=== PATIENT | female | born 2000 | race Caucasian/White ===

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

== ENCOUNTER 2019-03-04 16:15 | Emergency (ER) | payer MEDICAID ==
[2019-03-04 17:05] LABS: % BASOPHILS 0.5 % (0.0-2.0); % EOSINOPHILS 2.9 % (0.0-5.0); % LYMPHOCYTES 39.4 % (20.0-50.0); % MONOCYTES 4.3 % (2.0-10.0); % NEUTROPHILS 52.9 % (40.0-80.0); EOSINOPHILE ABSOLUTE 0.2 Th/cmm (0.1-0.4); HEMOGLOBIN 14.1 gm/dL (12-16); LYMPHOCYTE ABSOLUTE 3.3 Th/cmm (1.5-3.0); MEAN CELL VOLUME 85.2 fl (81-100); MEAN CORPUSCULAR HEMOGLOBIN 28.5 pg (27.0-31.0); MEAN CORPUSCULAR HGB CONC 33.5 pg (28.0-36.0); MONOCYTE ABSOLUTE 0.4 Th/cmm (0.3-1.0); NEUTROPHILE ABSOLUTE 4.5 Th/cmm (1.8-8.0); PLATELET COUNT 345 Th/cmm (150-400); RED BLOOD COUNT 4.92 Mil/cmm (3.80-5.10); RED CELL DISTRIBUTION WIDTH 13.3 % (11.5-20.0); WHITE BLOOD COUNT 8.4 Th/cmm (4.8-10.8)
[2019-03-04 17:16] LABS: AMYLASE SERUM 36 U/L (29-103); ANION GAP 15.6 (7.0-16.0); BUN - UREA NITROGEN 14 mg/dL (7-25); CALCIUM SERUM 10.1 mg/dL (8.6-10.3); CARBON DIOXIDE 21.8 mEq/L (21.0-31.0); CHLORIDE 105 mEq/L (98-107); CREATININE - SERUM 0.7 mg/dL (0.6-1.2); GFR AFRICAN-AMERICAN > 60.0 ml/min (>90); GFR NON AFRICAN-AMERICAN > 60.0 ml/min; GLUCOSE 98 mg/dL (70-105); LIPASE 14 U/L (11-82); POTASSIUM SERUM 3.4 mEq/L (3.5-5.1); SODIUM SERUM 139 mEq/L (136-145)
[2019-03-04] MEDS: Sodium Chloride 0.9% 800 ML IV ONE (17:21)
[2019-03-04] MEDS ORDERED: Potassium Chloride 20 mEq ER Tab PO ONE (17:30)
--- NOTE | 2019-03-04 17:43 | ED Physician Chart ---
ED Chief Complaint/HPI - Patient Information Date Seen:: 03/04/19 Time Seen:: 16:40 Chief Complaint:: Abdominal Pain History of Present Illness:: onset x 24 hours of intermittent, crampy, diffuse abdominal pain, N/V/D x 6; pt denies trauma, H/As, S/T, neck pain, cough, C/P, SOB, A/c, VB, VD, bleeding, fev er, chills, or urinary s/s Allergies:: Allergies Allergy/AdvReac Type Severity Reaction Status Date / Time No Known Allergies Allergy Verified 12/23/18 12:34 Vitals:: Vital Signs - 8 hr 03/04/19 16:46 Temp 98.1 F HR 101 RR 16 BP 125/79 O2 Sat % 97 Historian:: Patient Review:: Nurse's Note Reviewed, Old Chart Reviewed <Edil Soto - Last Filed: 03/04/19 18:54> - Patient Information Allergies:: Allergies Allergy/AdvReac Type Severity Reaction Status Date / Time No Known Allergies Allergy Verified 12/23/18 12:34 Vitals:: Vital Signs - 8 hr 03/04/19 16:46 Temp 98.1 F HR 101 RR 16 BP 125/79 O2 Sat % 97 <Nery Serrano - Last Filed: 03/04/19 20:27> ED Review of Systems - Review of Systems General/Constitutional: No fever, No chills, No weight loss, No weakness, No diaphoresis, No edema, No loss of appetite Skin: No skin lesions, No rash, No bruising Head: No headache, No light-headedness Eyes: No loss of vision, No pain, No diplopia ENT: No earache, No nasal drainage, No sore throat, No tinnitus Neck: No neck pain, No swelling, No thyromegaly, No stiffness, No mass noted Cardio Vascular: No chest pain, No palpitations, No PND, No orthopnea, No edema Pulmonary: No SOB, No cough, No sputum, No wheezing GI: No nausea, No vomiting, No diarrhea, No pain, No melena, No hematochezia, No constipation, No hematemesis G/U: No dysuria, No frequency, No hematuria, No nacturia 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 discharge, No abnormal vaginal bleed, No contraction Musculoskeletal: No bone or joint pain, No back pain, No muscle pain Endocrine: No polyuria, No polydipsia Psychiatric: No prior psych history, No depression, No anxiety, No suicidal ideation, No homicidal ideation, No auditory hallucination, No visual hallucination Hematopoietic: No bruising, No lymphadenopathy Allergic/Immuno: No urticaria, No angioedema Neurological: No syncope, No focal symptoms, No weakness, No paresthesia, No headache, No seizure, No dizziness, No confusion, No vertigo <Edil Soto - Last Filed: 03/04/19 18:54> ED Past Medical History - Past Medical History Obtainable: Yes Past Medical History: No significant medical hx Family History: None Social History: Non Smoker, No Alcohol, No Drug Use, Single, Lives With Parents Surgical History: Cholecystectomy Psychiatricy History: None Medication: Reviewed <Edil Soto [facility] Filed: 03/04/19 18:54> Family Medical History - Family Member Mother History Unknown: Yes <Edil Soto [facility] Filed: 03/04/19 18:54> ED Physical Exam - Physical Examination General/Constitutional: Awake, Well-developed, well-nourished, Alert, No distress, GCS 15, Non-toxic appearing, Ambulatory Head: Atraumatic Eyes: Lids, conjuctiva normal, PERRL, EOMI Skin: Nl inspection, No rash, No skin lesions, No ecchymosis, Well hydrated, No lymphadenopathy ENMT: External ears, nose nl, TM canals nl, Nasal exam nl, Lips, teeth, gums nl , Oropharynx nl, Tonsils nl Neck: Nontender, Full ROM w/o pain, No JVD, No nuchal rigidity, No bruit, No mass, No stridor Other Neck comments:: supple; no meningeal signs; no cervical tenderness Respiratory: Nl effort/Exclusion, Clear to Auscultation, No Wheeze/Rhonchi/Rales Cardio Vascular: RRR, No murmur, gallop, rubs, NL S1 S2, Carotid/Femoral/Distal pulses equal bilaterally GI: No tenderness/rebounding/guarding, No organomegaly, No hernia, Normal BS's, Nondistended, No mass/bruits, No McBurney tenderness, Rectum exam nl Other GI comments:: no pulsatile masses : No CVA tenderness Extremities: No tenderness or effusion, Full ROM, normal strength in all extremities, No edema, Normal digits & nails Neuro/Psych: Alert/oriented, DTR's symmetric, Normal sensory exam, Normal motor strength, Judgement/insight normal, Mood normal, Normal gait, No focal deficits Misc: Normal back, No paraspinal tenderness <Edil Soto - Last Filed: 03/04/19 18:54> ED Labs/Radiology/EKG Results - Lab Results Results: Laboratory Tests 03/04/19 03/04/19 03/04/19 16:59 16:59 16:59 WBC 8.4 RBC 4.92 Hgb 14.1 Hct 42.0 MCV 85.2 MCH 28.5 MCHC Differential 33.5 RDW 13.3 Plt Count 345 MPV 7.1 Neutrophils % 52.9 Lymphocytes % 39.4 Monocytes % 4.3 Eosinophils % 2.9 Basophils % 0.5 Sodium 139 Potassium 3.4 L Chloride 105 Carbon Dioxide 21.8 Anion Gap 15.6 BUN 14 Creatinine 0.7 Est GFR ( Amer) > 60.0 Est GFR (Non-Af Amer) > 60.0 BUN/Creatinine Ratio 20.0 Glucose 98 Calcium 10.1 Troponin I 0.01 Amylase 36 Lipase 14 Serum , Qual 03/04/19 16:59 WBC RBC Hgb Hct MCV MCH MCHC Differential RDW Plt Count MPV Neutrophils % Lymphocytes % Monocytes % Eosinophils % Basophils % Sodium Potassium Chloride Carbon Dioxide Anion Gap BUN Creatinine Est GFR ( Amer) Est GFR (Non-Af Amer) BUN/Creatinine Ratio Glucose Calcium Troponin I Amylase Lipase Serum , Qual NEGATIVE Comments:: Reviewed - EKG Interpretations EKG Time:: 17:12 Rate & Rhythm: 67; NSR; SAs Comments:: non-specific st-t changes <Edil Soto - Last Filed: 03/04/19 18:54> - Lab Results Results: Laboratory Tests 03/04/19 03/04/19 03/04/19 16:59 16:59 16:59 WBC 8.4 RBC 4.92 Hgb 14.1 Hct 42.0 MCV 85.2 MCH 28.5 MCHC Differential 33.5 RDW 13.3 Plt Count 345 MPV 7.1 Neutrophils % 52.9 Lymphocytes % 39.4 Monocytes % 4.3 Eosinophils % 2.9 Basophils % 0.5 Sodium 139 Potassium 3.4 L Chloride 105 Carbon Dioxide 21.8 Anion Gap 15.6 BUN 14 Creatinine 0.7 Est GFR ( Amer) > 60.0 Est GFR (Non-Af Amer) > 60.0 BUN/Creatinine Ratio 20.0 Glucose 98 Calcium 10.1 Troponin I 0.01 Amylase 36 Lipase 14 Serum , Qual Urine Color Urine Clarity Urine pH Ur Specific Divide Urine Protein Urine Glucose (UA) Urine Ketones Urine Blood Urine Nitrate Urine Bilirubin Urine Urobilinogen Ur Leukocyte Esterase Urine Test 03/04/19 03/04/19 03/04/19 16:59 19:00 19:00 WBC RBC Hgb Hct MCV MCH MCHC Differential RDW Plt Count MPV Neutrophils % Lymphocytes % Monocytes % Eosinophils % Basophils % Sodium Potassium Chloride Carbon Dioxide Anion Gap BUN Creatinine Est GFR ( Amer) Est GFR (Non-Af Amer) BUN/Creatinine Ratio Glucose Calcium Troponin I Amylase Lipase Serum , Qual NEGATIVE Urine Color YELLOW Urine Clarity CLEAR Urine pH 6.0 Ur Specific Divide >= 1.030 Urine Protein TRACE Urine Glucose (UA) NEGATIVE Urine Ketones 15 H Urine Blood NEGATIVE Urine Nitrate NEGATIVE Urine Bilirubin SMALL H Urine Urobilinogen 0.2 Ur Leukocyte Esterase NEGATIVE Urine Test NEGATIVE <Nery Serrano - Last Filed: 03/04/19 20:27> ED Septic Shock - . Is Septic Shock (SBP<90, OR Lactate>4 mmol\L) present?: No - <6hrs of presentation: Vital Signs: Vital Signs - 8 hr 03/04/19 16:46 Temp 98.1 F HR 101 RR 16 BP 125/79 O2 Sat % 97 <Edil Soto - Last Filed: 03/04/19 18:54> - <6hrs of presentation: Vital Signs: Vital Signs - 8 hr 03/04/19 16:46 Temp 98.1 F HR 101 RR 16 BP 125/79 O2 Sat % 97 <Nery Serrano - Last Filed: 03/04/19 20:27> ED Reassessment (Disposition) - Reassessment Reassessment Condition:: Improved - Diagnosis Diagnosis:: Abdominal Pain; N/V/D; AGE; Hypokalemia; Tachycardia; Dehydration <Edil Soto - Last Filed: 03/04/19 18:54> - Aftercare/Follow up Instructions Notes:: Patient refused further treatment and left AMA. - Patient Disposition Discharge/Transfer:: Against Medical Advice <Nery Serrano - Last Filed: 03/04/19 20:27>
[2019-03-04] MEDS: Potassium Chloride 20 mEq ER Tab PO ONE (17:46)
[2019-03-04] MEDS ORDERED: Morphine Sulfate 2 mg/mL 1mL Syr ONE (17:51)
[2019-03-04] MEDS: Morphine Sulfate 2 mg/mL 1mL Syr IV STA (17:51)
[2019-03-04 19:38] LABS: URINE SOURCE CLEAN C
[2019-03-04 19:39] LABS: URINE BILIRUBIN SMALL (NEGATIVE); URINE BLOOD NEGATIVE (NEGATIVE); URINE GLUCOSE (UA) NEGATIVE (NEGATIVE); URINE KETONE 15 mg/dL (NEGATIVE); URINE LEUKOCYTE ESTERASE NEGATIVE (NEGATIVE); URINE MICROSCOPIC INDICATED? YES; URINE NITRATE NEGATIVE (NEGATIVE); URINE PROTEIN TRACE mg/dL (NEGATIVE); URINE UROBILINOGEN 0.2 E.U./dL (0.2 - 1.0)
[2019-03-04 20:22] LABS: URINE CLARITY CLEAR (CLEAR); URINE COLOR YELLOW
[2019-03-04 20:41] LABS: URINE BACTERIA 1+ /hpf (NONE SEEN); URINE EPITHELIAL CELLS MODERATE /lpf (FEW); URINE RBC 0-2 /hpf (0-5)
--- NOTE | 2019-03-05 08:47 | Diagnostic Imaging Report ---
CT abdomen and pelvis without intravenous contrast Indication: Abdominal pain, rule out appendicitis Comparison: None, Technique: Axial images were obtained from the lung bases to the bilateral proximal femurs without IV contrast. Coronal reconstructions were made. total DLP: 266, CTDI 5.8 FINDINGS: Hypoventilatory changes of the lung bases are seen. There is a 2 mm mm nodule of the left lower lobe (image 1, series 5). 3 to 4 mm nodule of the right base is also noted along the pleura (image 3, series 5). Exam is limited due to lack of IV and oral contrast and lack of intra-abdominal body fat. No evidence of focal hepatic lesions. There appears to be evidence of prior cholecystectomy. No focal splenic lesions. Limited assessment of pancreas demonstrates no focal lesions. The adrenal glands are poorly visualized. No hydronephrosis or focal renal lesions. Moderate stool is seen throughout the colon with fluid-filled loops of bowel without evidence of obstruction. Air-filled appendix is noted without evidence of acute appendicitis at this time. Right adnexal fullness and small cystic changes are noted measuring up to 2.8 cm with probable septation or 2 adjacent cysts. No free fluid or free air. The osseous structures demonstrate no acute abnormalities. There is mild leftward convexity of the lumbar spine which may be due to positioning versus mild scoliosis. IMPRESSION: No evidence of acute appendicitis. Right adnexal fullness with cystic changes measuring up to 2.8 cm with probable septation or 2 adjacent cysts recommend short-term follow-up assessment with ultrasound. Evidence of prior cholecystectomy Small bibasal lung nodules nonspecific and may be due to prior infectious or inflammatory process. Please with clinical history and oral exams available. Alternatively, recommend follow-up surveillance in 12 months.
== END 2019-03-04 19:45 | disposition left against medical advice (07) ==
LOC: ER 16:15
DX: K52.9 Noninfective gastroenteritis and colitis, unspecified (principal); E86.0 Dehydration; E87.6 Hypokalemia; R00.0 Tachycardia, unspecified; Z90.49 Acquired absence of other specified parts of digestive tract
CPT/HCPCS: 99284; 96374; 96375; 93005; 74176; 84484; 36415; 85025; 81001; 82150; 84703; 81025; 83690; 80048; J2270; J2405; J1200; J7030